=== PATIENT | male | born 1940 | race Asian ===

== ENCOUNTER 2018-04-12 11:22 | Emergency (ER) | payer OTHER ==
[~2018-04-12] VITALS: Ht 144.8 cm; Wt 58.5 kg
[2018-04-12 11:27] VITALS: BP 150/78
[2018-04-12] MEDS ORDERED: IBUPROFEN 400 MG TAB PO ONE (12:00)
[2018-04-12] MEDS ORDERED: HYDROcodone/APAP 5/325 MG 1 TAB TAB PO ONE (12:00)
[2018-04-12 13:54] VITALS: BP 150/78
== END 2018-04-12 13:54 | disposition home or self-care (01) ==
LOC: MED 11:22
DX: S80.01XA Contusion of right knee, initial encounter (principal); W18.30XA Fall on same level, unspecified, initial encounter; Y93.89 Activity, other specified; Y92.098 Other place in other non-institutional residence as the place of occurrence of the external cause; Y99.8 Other external cause status
CPT/HCPCS: 29505; 73562; 99284